=== PATIENT | female | born 1965 | race Caucasian/White ===

== ENCOUNTER 2016-07-12 10:54 | Outpatient (CLI) | payer OTHER ==
[~2016-07-12 10:54] MED LIST: LOVASTATIN40 MG PO; MULTI FOR HER PO; NORCO1 TA1 PO; WELLBUTRIN SR150 MG PO; ZYRTEC ALLERGY10 MG
--- NOTE | 2016-07-19 10:56 | DIAGNOSTIC IMAGING REPORT ---
PROCEDURE: XR BARIUM SWALLOW INDICATION: Epigastric pain. Status post Kiera fundoplication. Prior balloon dilation. TECHNIQUE: Double contrast study. Fluoroscopy time, 3.6 minutes; 1909.57 mGy. 45 fluoroscopic images (including cine fluoroscopy of the esophagus). COMPARISON: Comparison is made to upper GI and 07/19/2013. FINDINGS: Postoperative changes consistent with prior fundoplication. There is moderate residual narrowing of the gastroesophageal junction (7 mm) with mild delayed emptying, and mild tertiary contractions. The rest of the esophagus is normal. There is no evidence of reflux. Portions of the gastric fundus are visualized. Small nodular gastric polyps have decreased in size, now measuring 3 mm (previously 4-10 mm). IMPRESSION: 1. Postoperative changes consistent with fundoplication. 2. There is residual narrowing of the gastroesophageal junction (7 mm) with delayed esophageal emptying and mild tertiary contractions (suggests partial obstruction). 3. No evidence of reflux. 4. Decreasing size of small fundal gastric polyps now measuring 3 mm (previously 4-10 mm). 5. Findings discussed with the patient. 6. Report alert called to the office of Dr. Plascencia.
[2016-08-19] MEDS ORDERED: LOVASTATIN20 MG PO (12:40)
[2016-08-19] MEDS ORDERED: OMEPRAZOLE40 MG PO (12:43)
== END 2016-07-12 23:00 ==
LOC: XR SRH 10:54
DX: K30 Functional dyspepsia (principal); K31.7 Polyp of stomach and duodenum; Z98.890 Other specified postprocedural states

== ENCOUNTER → 2016-10-25 | Outpatient (CLI) | payer OTHER ==
[~2016-10-25] MED LIST changes: +LOVASTATIN20 MG PO; +OMEPRAZOLE40 MG PO
--- NOTE | 2016-10-25 13:44 | DIAGNOSTIC IMAGING REPORT ---
PROCEDURE: XR KNEE 3 VIEWS BILATERAL INDICATION: BILAT KNEE PAIN, R ANKLE PAIN TECHNIQUE: Three views of each knee. COMPARISON: None. FINDINGS: RIGHT KNEE: No fracture or suspicious osseous lesion. Mild narrowing laterally. No effusion. Mild lateral patellar subluxation. LEFT KNEE: No fracture or suspicious osseous lesion. Normal joint spaces and effusion. Mild lateral patellar subluxation. IMPRESSION: 1. Mild bilateral patellar subluxation. 2. Mild narrowing of the left knee lateral compartment
--- NOTE | 2016-10-25 14:07 | DIAGNOSTIC IMAGING REPORT ---
PROCEDURE: XR ANKLE 3 OR 4 VIEWS - RIGHT INDICATION: BILAT KNEE PAIN, R ANKLE PAIN TECHNIQUE: Three views of the right ankle. COMPARISON: None. FINDINGS: No acute fractures. Mild irregular cortical based sclerosis of the lateral distal tibial metadiaphysis. Normal bony alignment. Large plantar calcaneal spur. There is soft tissue thickening dorsal to the distal fibula and mild periarticular soft tissue swelling. No unusual soft tissue calcifications. IMPRESSION: 1. No visible acute fractures. 2. Mild periarticular soft tissue swelling and dorsal soft tissue thickening, likely secondary to a sprain.
== END ==
LOC: XR SRH 12:38
DX: S83.002A Unspecified subluxation of left patella, initial encounter (principal); S83.001A Unspecified subluxation of right patella, initial encounter; M25.471 Effusion, right ankle; M77.31 Calcaneal spur, right foot